=== PATIENT | female | born 1935 | race Caucasian/White ===

== ENCOUNTER 2020-02-28 15:21 | Outpatient (CLI) | payer MEDICARE ==
--- NOTE | 2020-02-28 16:20 | ULT ---
Renal sonogram HISTORY: Urinary tract infection. FINDINGS: Right kidney measures up to 9.1 cm length. Lobular exophytic cysts at the superior pole haider sure up to 4.8 cm and 3.4 cm greatest diameters. No solid mass. No hydronephrosis. Left kidney is 9.3 cm length with a normal appearance. Urinary bladder contains echogenic debris within the dependent portion. Bilateral ureteral jets docum ented. Post void residual is minimal. IMPRESSION : No evidence of urinary tract obstruction. Echogenic debris within the dependent portion of the urinary bladder could represent blood product or residua from infection/inflammation.
== END 2020-02-28 15:22 | disposition home or self-care (01) ==
LOC: SCSULT 15:21
PROVIDERS: ATTEND Family Medicine
DX: N39.0 Urinary tract infection, site not specified (principal)
CPT/HCPCS: 76770

== ENCOUNTER 2021-09-27 12:06 | Outpatient (CLI) | payer MEDICARE | END 2021-09-27 12:07 | disposition home or self-care (01) | LOC: BICRAD 12:06 | PROVIDERS: ATTEND Family Medicine | DX: R05.9 Cough, unspecified (principal) | CPT/HCPCS: 71046 ==